=== PATIENT | female | born 1935 | race Caucasian/White ===

== ENCOUNTER 2017-06-11 05:59 | Emergency (ER) | payer OTHER, MEDICAID ==
[~2017-06-11] VITALS: Ht 157.5 cm; Wt 55.3 kg
[2017-06-11 06:05] VITALS: BP_SYST 160
[2017-06-11] MEDS ORDERED: GLIP5TAB13 PO (06:16)
[2017-06-11] MEDS ORDERED: LOSA100T11 PO (06:18)
[2017-06-11] MEDS ORDERED: CALC-939 PO (06:19)
[2017-06-11] MEDS ORDERED: CANA100T PO (06:20)
[2017-06-11] MEDS ORDERED: PIOG15TA66 PO (06:21)
[2017-06-11] MEDS ORDERED: [UNRECOGNIZED DRUG - OTHER] PO (06:22)
[2017-06-11] MEDS ORDERED: KETOROLAC TROMETHAMINE 30 MG VIAL IM ONE (07:00)
[2017-06-11] MEDS ORDERED: HYDROcodone/ACETAMIN 5-325 MG TAB (NORCO/ VICODIN) PO ONE (07:45)
[2017-06-11 11:10] VITALS: BP_SYST 147
== END 2017-06-11 11:10 | disposition home or self-care (01) ==
LOC: SED 05:59
DX: M54.31 Sciatica, right side (principal); M25.561 Pain in right knee
CPT/HCPCS: 82962; 93971; 96372; 99284; J1885